=== PATIENT | male | born 1935 | race Caucasian/White ===

== ENCOUNTER → 2017-07-05 | Outpatient (CLI) | payer OTHER | LOC: PLD 15:18 → LAB SHORT 15:18 | DX: C14.8 Malignant neoplasm of overlapping sites of lip, oral cavity and pharynx (principal) | CPT/HCPCS: 88305 ==

== ENCOUNTER 2017-08-15 13:35 | Emergency (ER) | payer OTHER ==
[~2017-08-15] VITALS: Ht 180.3 cm; Wt 90.7 kg
[2017-08-15] MEDS ORDERED: METO50ER PO (16:02)
[2017-08-20] MEDS ORDERED: ELIQUIS2.5 MG PO (00:03)
[2017-08-20] MEDS ORDERED: DILT30 PO (00:03)
[2017-08-20] MEDS ORDERED: METF850 PO (00:04)
[2017-08-20] MEDS ORDERED: OXYC5 (00:04)
[2017-08-20] MEDS ORDERED: SIMV5 PO (00:05)
[2017-08-20] MEDS ORDERED: Tylophen500 MG PO (00:05)
[2017-08-20] MEDS ORDERED: FLUC200 PO (00:06)
== END 2017-08-15 16:03 | disposition home or self-care (01) ==
LOC: ER 13:35
DX: Z48.817 Encounter for surgical aftercare following surgery on the skin and subcutaneous tissue (principal); I47.1 Supraventricular tachycardia; I48.91 Unspecified atrial fibrillation; E11.9 Type 2 diabetes mellitus without complications; I10 Essential (primary) hypertension; Z88.0 Allergy status to penicillin; Z91.048 Other nonmedicinal substance allergy status; Z85.819 Personal history of malignant neoplasm of unspecified site of lip, oral cavity, and pharynx
CPT/HCPCS: 93005; 93010; 96374; 99284